=== PATIENT | male | born 1975 | race Caucasian/White ===

== ENCOUNTER 2017-02-23 08:12 | Emergency (ER) | payer SELFPAY ==
[~2017-02-23] VITALS: Ht 165.1 cm; Wt 100.0 kg
[~2017-02-23 08:12] MED LIST: CIPROFLOXACN500 MG PO; CLARITIN10 MG OR; FIORICET PO; LORTAB 5/3255 MG PO; NAPROSYN500 MG PO; NEXIUM20 M1 PO; NO; ZPAK PO
[2017-02-23] MEDS ORDERED: CYCLOBENZAPR5 MG PO (08:42)
[2017-02-23] MEDS ORDERED: MOTRIN400 MG PO (08:42)
[2017-02-23 08:59] VITALS: BP 138/77
== END 2017-02-23 09:00 | disposition home or self-care (01) | DRG 552 ==
LOC: ED 08:12
DX: M54.5 Low back pain (principal)

== ENCOUNTER 2017-08-26 12:13 | Emergency (ER) | payer OTHER, BC ==
[~2017-08-26] VITALS: Ht 165.1 cm; Wt 100.0 kg
[~2017-08-26 12:13] MED LIST changes: +CYCLOBENZAPR5 MG PO; +MOTRIN400 MG PO
[2017-08-26] MEDS ORDERED: BACTROBAN TOP (13:31)
[2017-08-26] MEDS ORDERED: BACTRIM DS1 TAB PO (13:31)
[2017-08-26 14:01] VITALS: BP 143/90
== END 2017-08-26 14:01 | disposition home or self-care (01) | DRG 563 ==
LOC: ED 12:13
DX: S62.631A Displaced fracture of distal phalanx of left index finger, initial encounter for closed fracture (principal); S60.411A Abrasion of left index finger, initial encounter; F17.220 Nicotine dependence, chewing tobacco, uncomplicated; K21.9 Gastro-esophageal reflux disease without esophagitis; V58.5XXA Driver of pick-up truck or van injured in noncollision transport accident in traffic accident, initial encounter; Y92.89 Other specified places as the place of occurrence of the external cause; Y99.0 Civilian activity done for income or pay

== ENCOUNTER 2021-03-17 22:31 | Emergency (ER) | payer BC ==
[~2021-03-17] VITALS: Ht 165.1 cm; Wt 106.0 kg
[~2021-03-17 22:31] MED LIST changes: +BACTRIM DS1 TAB PO; +BACTROBAN TOP
[2021-03-17 23:39] LABS: HEMATOCRIT 42.5 % (39.0-50.0); HEMOGLOBIN 14.6 g/dl (14.0-18.0); IMMATURE GRANULOCYTES 0.3 % (0.0-5.0); MEAN CELL VOLUME 84.2 fL CALC (80.0-100.0); MEAN CORPUSCULAR HGB 28.9 pG CALC (26.0-32.0); MEAN CORPUSCULAR HGB CONC 34.4 g/dL CAL (32.0-36.0); NEUT# 5.63 thou/uL (1.82-7.42); RED BLOOD COUNT 5.05 mill/uL (4.70-6.10); RED CELL DISTRI WIDTH 12.6 % (11.5-15.5)
[2021-03-18 00:20] VITALS: BP 131/79
== END 2021-03-18 00:30 | disposition home or self-care (01) | DRG 179 ==
LOC: ED 22:31
PROVIDERS: Family Medicine
DX: U07.1 COVID-19 (principal); K21.9 Gastro-esophageal reflux disease without esophagitis; F17.210 Nicotine dependence, cigarettes, uncomplicated

== ENCOUNTER 2024-03-26 10:39 | Emergency (ER) | payer OTHER, BC ==
[~2024-03-26] VITALS: Ht 165.1 cm; Wt 96.0 kg
[2024-03-26 12:16] VITALS: BP 114/82
[2024-03-26 12:30] VITALS: BP 120/81
[2024-03-26] MEDS ORDERED: Diph, Acellular Pertussis, Tet 0.5 ML/VIAL (Tdap) SDV IM ONE (12:40)
[2024-03-26 12:45] VITALS: BP 116/79
[2024-03-26 13:00] VITALS: BP 113/80
[2024-03-26] MEDS ORDERED: NAPROXEN500 MG PO (13:13)
[2024-03-26 13:16] VITALS: BP 113/73
[2024-03-26 13:36] VITALS: BP 113/73
== END 2024-03-26 13:37 | disposition home or self-care (01) | DRG 605 ==
LOC: ED 10:39
DX: S60.051A Contusion of right little finger without damage to nail, initial encounter (principal); W31.89XA Contact with other specified machinery, initial encounter